=== PATIENT | female | born 1950 | race Caucasian/White ===

== ENCOUNTER → 2017-03-26 | Outpatient (CLI) | payer MEDICARE, OTHER ==
[~2017-03-26] MED LIST: ACTONEL; ALLE25CA PO; CALCIUM WITH D; CALCTAB22 PO; CARI350T PO; ENBREL; ESTRADIOL; FLEXERIL PO; FOLI1TAB PO; FOLITAB11; HYDROXYCHLOROQUINE PO; IMIT50TA; IMIT50TA PO; LIDO5DIS; LIDO5DIS EXT; MELOPOW; MELOPOW PO; METH2.5T; METH2.5T PO; MOBIC; MULTIVIT; MULTIVIT PO; NORETHINDRONE; OMEP20TA7 PO; SUDA30TA OR; TIZA2TAB PO; TYLENOL ARTHRITIS; VENL75TA2 PO; VITAMIN D 3; [UNRECOGNIZED DRUG - OTHER]; astelin spray; enbrel INJ; vitamin d3 PO
--- NOTE | 2017-03-26 12:25 | REPMRS ---
Patient History The patient states she had a clinical breast exam in 03/2017. Patient is postmenopausal and has history of other cancer at age 58. Family history of breast cancer in mother at age 50 or over and breast cancer in maternal aunt at age 50 or over. Taking estrogen for 18 years. Digital Woman Screen Mammo: March 26, 2017 - Exam #: [id number] Bilateral CC and MLO view(s) were taken. Technologist: Greer Lopez, Technologist Prior study comparison: September 19, 2015, digital woman screen mammo performed at [facility] to [facility]. May 10, 2014, digital woman screen mammo performed at [facility] to [facility]. FINDINGS: The breast tissue is heterogeneously dense. This may lower the sensitivity of mammography. There has been no change in the appearance of the mammogram from the prior studies. There is a moderate amount of residual fibroglandular tissue which is fairly symmetric. There is no interval development of dominant mass, areas of architectural distortion, or clustered microcalcification typical of malignancy. ASSESSMENT: BI-RADS/ACR category 1 mammogram. Negative. Recommendation Routine screening mammogram in 1 year (for women over age 40). This mammogram was interpreted with the aid of an FDA-approved computer-aided dectection system. Electronically Signed By: Alo Grissom MD 03/26/17 [id number]
== END ==
LOC: M WHC 11:00
PROVIDERS: ATTEND Nurse Practitioner Women's Health
DX: Z12.31 Encounter for screening mammogram for malignant neoplasm of breast (principal)
CPT/HCPCS: G0202; G0463

== ENCOUNTER → 2017-05-04 | Outpatient (CLI) | payer MEDICARE, OTHER ==
[~2017-05-04] MED LIST changes: +AMIT8CAP4 PO; +CELE1CAP9 PO; +ENBR50IN4 SQ; +ESTR1MIS; +HYDR-643 PO; +HYDR200T3 PO; +IMIT6INJ SC; +NALT50TA4 PO; +OMEP20CA3 PO; +VENL150C43 PO
--- NOTE | 2017-05-04 15:41 | REP ---
REASON: Constipation. FINDINGS: KUB shows the intestinal gas pattern to be nonspecific. The organ silhouettes insofar as delineated are unremarkable. There is no evidence of free intraperitoneal air. There is a large amount of stool in the colon which needs to be correlated clinically for constipation. There are chronic changes seen involving the spine and there are bilateral hip prostheses. IMPRESSION: Nonspecific.
== END ==
LOC: M CLY 15:00
PROVIDERS: ATTEND Nurse Practitioner
DX: K59.04 Chronic idiopathic constipation (principal)
CPT/HCPCS: 74000; G0463

== ENCOUNTER → 2017-05-27 | Outpatient (CLI) | payer MEDICARE, OTHER ==
[~2017-05-27] VITALS: Ht 157.5 cm; Wt 71.2 kg
[~2017-05-27] MED LIST changes: +LABETALOL HCL 100 MG/20 ML VIAL As Ordered ONE; +NS 1,000 ML IV ONE; +PROPOFOL 200 MG/20 ML VIAL As Ordered ONE; +SUMAtriptan SUCCINATE 6 MG/0.5 ML VIAL SC ONE
--- NOTE | 2017-05-27 15:21 | ROOR ---
Patient Name: Sonali Sams Procedure Date: 05/27/2017 2:57 PM Date of : 1950 Age: 66 Room: [facility] Gender: Female Note Status: Finalized Procedure: Total Colonoscopy to Cecum Indications: Lower abdominal pain, Change in bowel habits Providers: Darci Huffman MD Referring MD: Ramu Jama MD Requesting Provider: Medicines: Monitored Anesthesia Care Complications: No immediate complications. Procedure: Pre-Anesthesia Assessment: - The heart rate, respiratory rate, oxygen saturations, blood pressure, adequacy of pulmonary ventilation, and response to care were monitored throughout the procedure. The Colonoscope was introduced through the anus and advanced to the cecum, identified by appendiceal orifice and ileocecal valve. Findings: The perianal and digital rectal examinations were normal. Non-bleeding internal hemorrhoids were found during retroflexion. The hemorrhoids were small and Grade I (internal hemorrhoids that do not prolapse). No other significant abnormalities were identified in a careful examination of the remainder of the colon. The exam was otherwise without abnormality on direct and retroflexion views. Impression: - Non-bleeding internal hemorrhoids. - The examination was otherwise normal on direct and retroflexion views. - No specimens collected. - The exam was otherwise normal to the cecum. Recommendation: - Patient has a contact number available for emergencies. The signs and symptoms of potential delayed complications were discussed with the patient. Return to normal activities tomorrow. Written discharge instructions were provided to the patient. - High fiber diet. - Discharge patient to home. - Continue present medications. - Repeat colonoscopy in 5 years for screening purposes. - Return to referring physician. - The findings and recommendations were discussed with the patient's family. Darci Huffman MD Darci Huffman MD 05/27/2017 3:21:19 PM This report has been signed electronically. Number of Addenda: 0 Note Initiated On: 05/27/2017 2:57 PM Estimated Blood Loss: Estimated blood loss: none.
[2017-05-27 15:40] VITALS: BP 179/94
== END | disposition home or self-care (01) ==
LOC: M OPP 13:57
PROVIDERS: ATTEND Internal Medicine Gastroenterology
DX: R10.30 Lower abdominal pain, unspecified (principal); R19.4 Change in bowel habit; K58.1 Irritable bowel syndrome with constipation; K64.0 First degree hemorrhoids; M89.9 Disorder of bone, unspecified; R19.7 Diarrhea, unspecified; Z86.010 Personal history of colon polyps; R23.3 Spontaneous ecchymoses; M08.00 Unspecified juvenile rheumatoid arthritis of unspecified site; M25.60 Stiffness of unspecified joint, not elsewhere classified; G43.909 Migraine, unspecified, not intractable, without status migrainosus; Z88.0 Allergy status to penicillin; Z88.1 Allergy status to other antibiotic agents; Z88.5 Allergy status to narcotic agent; Z79.899 Other long term (current) drug therapy; Z83.71 Family history of colonic polyps; Z80.3 Family history of malignant neoplasm of breast; Z80.8 Family history of malignant neoplasm of other organs or systems

== ENCOUNTER → 2017-07-03 | Outpatient (REF) | payer MEDICARE, OTHER ==
[~2017-07-03] MED LIST changes: -LABETALOL HCL 100 MG/20 ML VIAL As Ordered ONE; -NS 1,000 ML IV ONE; -PROPOFOL 200 MG/20 ML VIAL As Ordered ONE; -SUMAtriptan SUCCINATE 6 MG/0.5 ML VIAL SC ONE
[2017-07-03 18:35] LABS: BLOOD UREA NITROGEN 21 MG/DL (7-18); CREATININE FOR GFR 0.71 MG/DL (0.55-1.02); GLOMERULAR FILTRATION RATE > 60.0 (>45)
== END ==
LOC: M LAB REF 17:11
PROVIDERS: ATTEND Internal Medicine Gastroenterology
DX: R10.30 Lower abdominal pain, unspecified (principal)

== ENCOUNTER → 2017-07-08 | Outpatient (CLI) | payer MEDICARE, OTHER ==
[~2017-07-08] MED LIST changes: +GASTROGRAFIN SOLUTION 30ML (Q9963) As Ordered ONE; +ISOVUE-370 76% 100ML VIAL (Q9967) As Ordered ONE
--- NOTE | 2017-07-08 18:16 | REP ---
CT abdomen and pelvis with IV and oral contrast: History: Lower abdominal pain. CT contrast dose: 100 mL of Isovue [address] findings: Preliminary digital nutrition services assistant radiograph demonstrates a dextroconvex curvature in the lumbar spine and bilateral hip replacements. The lung bases are clear. There are two small hepatic cysts, the largest of which is high in the right lobe measuring 2.1 cm in greatest diameter. Gallbladder is unremarkable. No pancreatic lesion is seen. Spleen has a normal appearance. No adrenal lesion is seen on either side. There is a cyst in the upper pole of the right kidney which measures 2.0 cm in greatest diameter. No renal mass or hydronephrosis is seen. Normal caliber aorta is noted. Small and large intestinal bowel loops are normal in appearance. A normal appendix is seen. There is some spray artifact on pelvic images from hip replacement but no uterine or ovarian abnormality is seen. The uterus appears to be retroverted. No bony destructive lesion is appreciated. There are degenerative disc changes in the lumbar spine. Impression: Small right hepatic and right renal cysts. Status post bilateral hip replacements. Retroverted uterus. Otherwise unremarkable CT abdomen pelvis. Signed by Fortunato Taylor MD 07/09/2017 08:52 A
== END ==
LOC: M RAD 13:11
PROVIDERS: ATTEND Internal Medicine Gastroenterology
DX: R10.30 Lower abdominal pain, unspecified (principal)
CPT/HCPCS: 74177; Q9963; Q9967

== ENCOUNTER → 2017-07-22 | Outpatient (REF) | payer MEDICARE, OTHER ==
[~2017-07-22] MED LIST changes: -GASTROGRAFIN SOLUTION 30ML (Q9963) As Ordered ONE; -ISOVUE-370 76% 100ML VIAL (Q9967) As Ordered ONE
[2017-07-23 12:49] LABS: ADD MANUAL DIFFER YES; DIFF SLIDE NUMBER 382; MEAN CORPUSCULAR HEMOGLOBIN 33.1 pg (27.0-33.0); MEAN CORPUSCULAR HGB CONC 33.2 g/dl (32.0-36.5); MEAN CORPUSCULAR VOLUME 99.7 fl (80.0-96.0); PLATELET COUNT, AUTOMATED 209 k/mm3 (150-450); RED CELL DISTRIBUTION WIDTH 12.9 % (11.5-14.5)
[2017-07-23 13:54] LABS: ERYTHROCYTE SEDIMENTATION RATE 4 mm/hr (0-30)
[2017-07-23 14:03] LABS: ALBUMIN 4.1 GM/DL (3.2-5.2); ALBUMIN/GLOBULIN RATIO 1.37 (1.00-1.93); ALKALINE PHOSPHATASE 81 U/L (45-117); ALT/SGPT 27 U/L (12-78); ANION GAP 9 MEQ/L (8-16); AST/SGOT 22 U/L (15-37); BILIRUBIN,TOTAL 0.5 MG/DL (0.2-1.0); BLOOD UREA NITROGEN 18 MG/DL (7-18); CALCIUM LEVEL 9.2 MG/DL (8.8-10.2); CARBON DIOXIDE LEVEL 28 MEQ/L (21-32); CHLORIDE LEVEL 104 MEQ/L (98-107); CREATININE FOR GFR 0.69 MG/DL (0.55-1.02); GLOMERULAR FILTRATION RATE > 60.0 (>45); GLUCOSE, FASTING 97 MG/DL (80-110); POTASSIUM SERUM 4.3 MEQ/L (3.5-5.1); SODIUM LEVEL 141 MEQ/L (136-145); TOTAL PROTEIN 7.1 GM/DL (6.4-8.2)
[2017-07-23 14:21] LABS: BASOPHILS 2 % (0-4); EOSINOPHILS 4 % (0-5)
== END ==
LOC: M LABDRAWC 11:40
PROVIDERS: ATTEND Internal Medicine Rheumatology
DX: M05.79 Rheumatoid arthritis with rheumatoid factor of multiple sites without organ or systems involvement (principal); Z79.899 Other long term (current) drug therapy; M85.89 Other specified disorders of bone density and structure, multiple sites; E55.9 Vitamin D deficiency, unspecified

== ENCOUNTER → 2018-08-03 | Outpatient (CLI) | payer MEDICARE, OTHER | LOC: M WHC 13:07 | DX: M85.832 Other specified disorders of bone density and structure, left forearm (principal); M85.88 Other specified disorders of bone density and structure, other site | CPT/HCPCS: 77080 ==

== ENCOUNTER → 2018-08-26 | Outpatient (REF) | payer MEDICARE, OTHER ==
[2018-08-26 14:10] LABS: TOTAL 25(OH) VITAMIN D 45.6 NG/ML (30.0-100.0)
== END ==
LOC: M LABDRAW1 12:37
DX: M81.0 Age-related osteoporosis without current pathological fracture (principal)
CPT/HCPCS: 82306

== ENCOUNTER → 2019-06-08 | Outpatient (CLI) | payer MEDICARE, OTHER ==
[~2019-06-08] MED LIST changes: -ENBR50IN4 SQ; +ETAN50PE SQ; +OMEP1CAP73 PO; -OMEP20CA3 PO
--- NOTE | 2019-06-08 15:17 | REPMRS ---
Patient History The patient states she had a clinical breast exam in 05/2019. Patient is postmenopausal and has history of skin cancer at age 58. Family history of breast cancer at age 50 or over in mother, breast cancer at age 50 or over in maternal aunt. Took estrogen for 18 years. 3D TOMOSYNTHESIS WAS PERFORMED. The [facility] lifetime risk for breast cancer is 13.3%. Digital Woman Screen Mammo: June 08, 2019 - Exam #: [id number] Bilateral CC and MLO view(s) were taken. Technologist: Vivian Cuba, Technologist Prior study comparison: March 26, 2017, digital woman screen mammo performed at [facility]. September 19, 2015, digital woman screen mammo performed at [facility]. FINDINGS: The breast tissue is heterogeneously dense. This may lower the sensitivity of mammography. There has been no change in the appearance of the mammogram from the prior studies. There is a moderate amount of residual fibroglandular tissue which is fairly symmetric. There is no interval development of dominant mass, areas of architectural distortion, or clustered microcalcification typical of malignancy. Assessment: BI-RADS/ACR category 1 mammogram. Negative Mammogram. Recommendation Routine screening mammogram in 1 year (for women over age 40). This mammogram was interpreted with the aid of an FDA-approved computer-aided dectection system. Electronically Signed By: Alo Grissom MD 06/08/19 [id number]
== END ==
LOC: M WHC 13:09
PROVIDERS: ATTEND Nurse Practitioner Women's Health
DX: Z12.31 Encounter for screening mammogram for malignant neoplasm of breast (principal); Z78.0 Asymptomatic menopausal state; Z85.828 Personal history of other malignant neoplasm of skin; Z80.3 Family history of malignant neoplasm of breast; Z92.23 Personal history of estrogen therapy
CPT/HCPCS: 77063; 77067; G0463

== ENCOUNTER → 2020-06-11 | Outpatient (REF) | payer MEDICARE, OTHER ==
[2020-07-06 21:53] LABS: BASO % 0.9 % (0.0-1.0); EOS # 0.1 10^3/uL (0.0-0.5); EOS % 3.1 % (0.0-3.0); HEMATOCRIT 65.3 % (36.0-47.0); HEMOGLOBIN 21.5 g/dl (12.0-15.5); LYMPH # 1.8 10^3/uL (1.5-5.0); LYMPH % 43.6 % (24.0-44.0); MEAN CORPUSCULAR HEMOGLOBIN 33.3 pg (27.0-33.0); MEAN CORPUSCULAR HGB CONC 32.9 g/dl (32.0-36.5); MEAN CORPUSCULAR VOLUME 101.2 fl (80.0-96.0); MONO # 0.3 10^3/uL (0.0-0.8); MONO % 7.1 % (0.0-5.0); NEUTROPHILS # 1.9 10^3/uL (1.5-8.5); NEUTROPHILS % 44.8 % (36.0-66.0); PLATELET COUNT, AUTOMATED 90 10^3/uL (150-450); RED BLOOD COUNT 6.45 10^6/uL (4.00-5.40); WHITE BLOOD COUNT 4.2 10^3/uL (4.0-10.0)
[2020-08-17 15:19] LABS: THYROID STIMULATING HORMONE SEE SEPARATE REPORT
== END ==
LOC: M SFHCPLAZ 08:59
PROVIDERS: ATTEND Nurse Practitioner Women's Health
DX: N95.1 Menopausal and female climacteric states (principal)

== ENCOUNTER → 2020-06-11 | Outpatient (CLI) | payer MEDICARE, OTHER ==
--- NOTE | 2020-07-06 07:50 | REPMRS ---
Patient History The patient states she had a clinical breast exam in 05/2020. Patient is postmenopausal and has history of other cancer at age 58. Family history of breast cancer at age 50 or over in mother, breast cancer at age 50 or over in maternal aunt. Took estrogen for 18 years. Digital Woman Screen Mammo: June 11, 2020 - Exam #: [id number] Bilateral CC and MLO view(s) were taken. Technologist: Liz Wright, Technologist Prior study comparison: June 08, 2019, bilateral digital woman screen mammo performed at [facility]. March 26, 2017, digital woman screen mammo performed at [facility]. September 19, 2015, digital woman screen mammo performed at [facility]. FINDINGS: The breast tissue is heterogeneously dense. This may lower the sensitivity of mammography. There is a moderate amount of heterogeneously dense fibroglandular tissue which is fairly symmetric. There is no interval development of dominant mass, architectural distortion, or grouped microcalcification typical of malignancy. There has been no change in the appearance of the mammogram from the prior studies. 3-D tomosynthesis shows no additional findings. Report was delayed due to a malware attack on this facility. Assessment: BI-RADS/ACR category 1 mammogram. Negative Mammogram. Recommendation Routine screening mammogram of both breasts in 1 year (for women over age 40). This patient's Lifetime Breast Cancer RIsk is estimated at 12.5 %. This mammogram was interpreted with the aid of an FDA-approved computer-aided dectection system. Electronically Signed By: Darrel Taylor MD 07/06/20 0749
== END ==
LOC: M WHC 17:13
PROVIDERS: ATTEND Nurse Practitioner Women's Health
DX: Z01.419 Encounter for gynecological examination (general) (routine) without abnormal findings (principal); Z12.31 Encounter for screening mammogram for malignant neoplasm of breast; Z78.0 Asymptomatic menopausal state; Z80.3 Family history of malignant neoplasm of breast; Z92.23 Personal history of estrogen therapy; Z79.899 Other long term (current) drug therapy
CPT/HCPCS: 36415; 77063; 77067; 84439; 84443; 85025; 85049; 85055; G0101

== ENCOUNTER → 2020-06-27 | Outpatient (REF) | payer MEDICARE, OTHER ==
[2020-07-30 09:48] LABS: HEMATOCRIT 47.3 % (36.0-47.0); HEMOGLOBIN 15.5 g/dl (12.0-15.5); MEAN CORPUSCULAR HEMOGLOBIN 33.5 pg (27.0-33.0); MEAN CORPUSCULAR HGB CONC 32.8 g/dl (32.0-36.5); MEAN CORPUSCULAR VOLUME 102.4 fl (80.0-96.0); PLATELET COUNT, AUTOMATED 241 10^3/uL (150-450); RED BLOOD COUNT 4.62 10^6/uL (4.00-5.40); WHITE BLOOD COUNT 5.2 10^3/uL (4.0-10.0)
[2020-08-12 06:32] LABS: BLOOD UREA NITROGEN 23 MG/DL (7-18); CALCIUM LEVEL 9.4 MG/DL (8.8-10.2); CARBON DIOXIDE LEVEL 31 MEQ/L (21-32); CHLORIDE LEVEL 105 MEQ/L (98-107); CREATININE FOR GFR 0.72 MG/DL (0.55-1.30); GLOMERULAR FILTRATION RATE > 60.0 (>39); GLUCOSE, FASTING 81 MG/DL (70-100); POTASSIUM SERUM 4.8 MEQ/L (3.5-5.1); SODIUM LEVEL 138 MEQ/L (136-145)
== END ==
LOC: M SFHCCLAY 09:29
PROVIDERS: ATTEND Family Medicine
DX: R23.2 Flushing (principal)

== ENCOUNTER → 2020-08-07 | Outpatient (REF) | payer MEDICARE, OTHER ==
[2020-08-08 12:42] LABS: FREE T4 0.8 NG/DL (0.76-1.46); THYROID STIMULATING HORMONE 3.51 uIU/ML (0.358-3.740)
== END ==
LOC: M SFHCCLAY 11:01
PROVIDERS: ATTEND Family Medicine
DX: E03.9 Hypothyroidism, unspecified (principal)

== ENCOUNTER → 2021-05-03 | Outpatient (REF) | payer MEDICARE, OTHER | LOC: M LABDRAWC 15:36 | PROVIDERS: ATTEND Internal Medicine Endocrinology, Diabetes & Metabolism | DX: M85.9 Disorder of bone density and structure, unspecified (principal) ==

== ENCOUNTER → 2021-05-15 | Outpatient (CLI) | payer MEDICARE, OTHER ==
--- NOTE | 2021-05-16 16:09 | REPVR ---
PROCEDURE INFORMATION: Exam: MR Lumbar Spine Without Contrast Exam date and time: 05/15/2021 1:32 PM Age: 70 years old Clinical indication: Low back pain; Additional info: Abnormal levels of other serum enzymes TECHNIQUE: Imaging protocol: Multiplanar magnetic resonance images of the lumbar spine without intravenous contrast. COMPARISON: CT ABD PELVIS WITH CONTRAST 07/08/2017 3:11 PM FINDINGS: Vertebrae: See "Sacrum/coccyx" finding. Spinal cord: Normal signal. No cord compression. T12-L1: There is degenerative disc disease including disc space narrowing and dessication. There is a moderate disc/osteophyte complex that flattens the ventral thecal sac. L1-L2: There is disc desiccation. There is a moderate disc/osteophyte complex that flattens the ventral thecal sac. There is moderate bilateral neural foraminal narrowing. There is facet arthropathy and ligamentum flavum hypertrophy. There is mild spinal canal stenosis. L2-L3: There is a moderate disc/osteophyte complex that flattens the ventral thecal sac. There is severe left-sided neuroforaminal narrowing. There is moderate right-sided neuroforaminal narrowing. There is facet arthropathy and ligamentum flavum hypertrophy. There is mild/moderate spinal canal stenosis. L3-L4: There is disc space narrowing and desiccation. There are moderate degenerative end plate changes at this level. There is a moderate disc/osteophyte complex that flattens the ventral thecal sac. There is moderate/severe bilateral neural foraminal narrowing. There is facet arthropathy and ligamentum flavum hypertrophy. There is moderate spinal canal stenosis. L4-L5: There is disc space narrowing and desiccation. There are moderate degenerative end plate changes at this level. There is a moderate disc/osteophyte complex that flattens the ventral thecal sac. There is a superimposed right foraminal disc herniation. There is severe right-sided neuroforaminal narrowing. There is moderate left-sided neuroforaminal narrowing. There is facet arthropathy and ligamentum flavum hypertrophy. There is moderate spinal canal stenosis. L5-S1: There is disc desiccation. There is a moderate disc/osteophyte complex that flattens the ventral thecal sac. There is a superimposed right foraminal disc herniation. There is severe right-sided neuroforaminal narrowing. There is moderate left-sided neuroforaminal narrowing. There is exuberant bilateral facet arthropathy and ligamentum flavum hypertrophy. There is a 6 mm right-sided synovial cyst that encroaches into the spinal canal. There is moderate/severe spinal canal stenosis. Sacrum/coccyx: There is a transitional lumbosacral segment. There is lumbarization of the S1 vertebra. Correlation with plain films prior to any future lumbar procedure is recommended to confirm accurate numbering of the lumbar spine. Soft tissues: Unremarkable. IMPRESSION: 1. Advanced multilevel degenerative changes causing variable degrees of spinal canal and neuroforaminal narrowing as described above. 2. There is a transitional lumbosacral segment. There is lumbarization of the S1 vertebra. Correlation with plain films prior to any future lumbar procedure is recommended to confirm accurate numbering of the lumbar spine. Electronically signed by: Sadi Randolph On 05/16/2021 16:09:32 PM
== END ==
LOC: M PLAIMG 12:26
PROVIDERS: ATTEND Orthopaedic Surgery
DX: M51.36 Other intervertebral disc degeneration, lumbar region (principal); M48.061 Spinal stenosis, lumbar region without neurogenic claudication; M51.26 Other intervertebral disc displacement, lumbar region

== ENCOUNTER → 2021-05-31 | Outpatient (CLI) | payer MEDICARE, OTHER ==
[2021-05-31 13:59] LABS: COLLAGEN EPINEPHRINE 95 SECONDS (74-162)
[2021-05-31 14:02] LABS: INR 0.92; PARTIAL THROMBOPLASTIN TIME 25.7 SECONDS (24.2-38.5); PROTHROMBIN TIME 12.5 SECONDS (12.5-14.3)
== END ==
LOC: M PLALAB 12:44
PROVIDERS: ATTEND Physician Assistant
DX: M51.36 Other intervertebral disc degeneration, lumbar region (principal)

== ENCOUNTER → 2021-06-06 | Outpatient (REF) | payer MEDICARE, OTHER ==
[2021-06-06 16:21] LABS: PLATELET COUNT, AUTOMATED 205 10^3/uL (150-450)
== END ==
LOC: M LABDRAWC 15:53
PROVIDERS: ATTEND Physical Medicine & Rehabilitation
DX: Z01.812 Encounter for preprocedural laboratory examination (principal)

== ENCOUNTER → 2021-06-13 | Outpatient (CLI) | payer MEDICARE, OTHER ==
--- NOTE | 2021-06-13 12:32 | REPMRS ---
Patient History The patient states she had a clinical breast exam in May 2021. Family history of breast cancer at age 50 or over in mother, breast cancer at age 50 or over in maternal aunt. Took estrogen for 18 years. Patient states no breast complaints today. Patient has signed MRS History Sheet. Digital Woman Screen Mammo: June 13, 2021 - Exam #: [id number] Bilateral CC and MLO view(s) were taken. Technologist: Vivian Cuba, Technologist Prior study comparison: June 11, 2020, bilateral digital woman screen mammo performed at [facility]. June 08, 2019, bilateral digital woman screen mammo performed at [facility]. FINDINGS: There are scattered fibroglandular densities. Screening. Digital screening (2D) mammography was performed bilaterally in the CC and MLO projections. Additionally, breast tomosynthesis (3D mammography) was performed bilaterally in the CC and MLO projections. Todays exam was compared to the prior exam/exams. By history, the patient has no complaints of a palpable breast abnormality or other significant breast complaints. The breasts are unchanged in size and shape. There are no david-soft tissue densities or spiculated masses. There is no internal architectural distortion. Once again, stable benign appearing calcifications are seen.There are no suspicious david-calcific clusters. Skin thickening or nipple retraction is not present. IMPRESSION: BI-RADS Category 2- Benign Findings. There is no evidence of malignant alteration of the breasts. Followup examination recommended in one year. This mammogram was read with the assistance of At[employer],an FDA approved computer aided detection system for mammography. The Volpara volumetric breast density category is B, there are scattered areas of fibroglandular densities. Negative x-ray reports should not delay surgical consultation if a dominant or clinically suspicious mass is present. The lifetime Tyrer-Cuzick score is 11.8 % Not all breast cancers can be identified by mammography. Therefore, we recommend that you continue to perform regular breast self-examination and physical examination and then promptly contact your physician of any concerns or changes. Adenosis and dense breasts may obscure an underlying neoplasm. Assessment: BI-RADS/ACR category 2 mammogram. Benign Findings. Recommendation Routine screening mammogram of both breasts in 1 year. Electronically Signed By: Ezra Trimble DO 06/13/21 1231
== END ==
LOC: M WHC 11:16
PROVIDERS: ATTEND Nurse Practitioner Women's Health
DX: Z01.419 Encounter for gynecological examination (general) (routine) without abnormal findings (principal); Z12.31 Encounter for screening mammogram for malignant neoplasm of breast; Z80.3 Family history of malignant neoplasm of breast; N95.2 Postmenopausal atrophic vaginitis
CPT/HCPCS: 77063; 77067; G0101

== ENCOUNTER → 2021-06-20 | Outpatient (CLI) | payer MEDICARE, OTHER ==
--- NOTE | 2021-06-20 14:47 | DEXAMM ---
INDICATION: DISORDER OF BONE/M85.9. COMPARISON: 08/03/2018 as well as other prior exams. TECHNIQUE: Bone density was measured using dual-energy x-ray absorptiometry (DEXA). FINDINGS: AP SPINE L1-L4 BMD 1.362 g/cm2 Young Adult T-Score 1.4 Age Matched Z-Score 3.1. LT forearm radius UD, TOTAL BMD 0.460 g/cm2 Young Adult T-Score -0.2 Age Matched Z-Score 1.9. LT radius 33% BMD 0.630 g/cm2 Young Adult T-Score -2.9 Age Matched Z-Score -0.9. IMPRESSION: There is normal bone density of the spine. 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 The density of the spine has increased 13.4% since the initial exam on 12/24/2010. The density of the spine decreased 2.5% since most recent exam on 08/03/2018. The density of the left radius 33% has decreased 11.1% since initial exam on 08/01/2016. The density of the left radius 33% has decreased 13.2% since most recent exam on 08/03/2018. FOLLOW-UP: Recommendation for the next bone density exam: 2 years. <Electronically signed by Alo Grissom > 06/20/21 1059
== END ==
LOC: M WHC 12:57
PROVIDERS: ATTEND Internal Medicine Endocrinology, Diabetes & Metabolism
DX: M85.0 Fibrous dysplasia (monostotic) (principal); Z78.0 Asymptomatic menopausal state

== ENCOUNTER → 2021-08-16 | Outpatient (CLI) | payer MEDICARE, OTHER ==
--- NOTE | 2021-08-16 13:50 | REP ---
INDICATION: LUMBAR DISE DISPLACEMENT, EVAL LOOSENING/OTH DERAN. COMPARISON: Comparison study February 24, 2012. TECHNIQUE: 22.0 mCi of technetium 99 M MDP is injected and standard 3 phase imaging is acquired. Field of view includes the pelvis and hips. The lumbar spine as well. FINDINGS: Anterior and posterior flow images show no abnormality. Blood pool images as well as delayed scan images demonstrate photopenia associated with bilateral hip arthroplasties. There is no evidence of localized hyperemia to suggest an inflammatory or vascular lesion. Delayed scan images show no evidence of loosening. There is degenerative facet and disc uptake in the lumbar spine along with a dextroconvex lumbar curvature. IMPRESSION: Bilateral hip arthroplasties. Degenerative disc and facet changes in the lumbar spine. No evidence to suggest loosening or infection. <Electronically signed by Darrel Taylor > 08/16/21 [id number]
== END ==
LOC: M RAD 10:12
PROVIDERS: ATTEND Physician Assistant
DX: M51.26 Other intervertebral disc displacement, lumbar region (principal); Z96.643 Presence of artificial hip joint, bilateral
CPT/HCPCS: 78315; A9503

== ENCOUNTER → 2021-09-05 | Outpatient (REF) | payer MEDICARE, OTHER | LOC: M LABDRAWC 15:50 | PROVIDERS: ATTEND Internal Medicine Endocrinology, Diabetes & Metabolism | DX: M81.0 Age-related osteoporosis without current pathological fracture (principal) ==

== ENCOUNTER → 2022-04-09 | Outpatient (CLI) | payer MEDICARE, OTHER | LOC: M CLY 14:18 | PROVIDERS: ATTEND Family Medicine | DX: R07.89 Other chest pain (principal); Z96.611 Presence of right artificial shoulder joint; Z96.612 Presence of left artificial shoulder joint ==

== ENCOUNTER → 2022-04-18 | Outpatient (CLI) | payer MEDICARE, OTHER | LOC: M PLAIMG 09:52 | PROVIDERS: ATTEND Family Medicine | DX: M54.32 Sciatica, left side (principal); M48.061 Spinal stenosis, lumbar region without neurogenic claudication; M51.27 Other intervertebral disc displacement, lumbosacral region; M41.86 Other forms of scoliosis, lumbar region ==

== ENCOUNTER → 2022-04-25 | Outpatient (REF) | payer MEDICARE, OTHER ==
[2022-04-25 16:43] LABS: BASO # 0.1 10^3/uL (0.0-0.2); BASO % 1.5 % (0.0-1.0); EOS # 0.2 10^3/uL (0.0-0.5); EOS % 4.8 % (0.0-3.0); HEMATOCRIT 47.1 % (36.0-47.0); HEMOGLOBIN 15.6 g/dl (12.0-15.5); LYMPH # 1.3 10^3/uL (1.5-5.0); LYMPH % 31.6 % (24.0-44.0); MEAN CORPUSCULAR HEMOGLOBIN 32.8 pg (27.0-33.0); MEAN CORPUSCULAR HGB CONC 33.1 g/dl (32.0-36.5); MEAN CORPUSCULAR VOLUME 99.2 fl (80.0-96.0); MONO # 0.7 10^3/uL (0.0-0.8); MONO % 17.2 % (2.0-8.0); NEUTROPHILS # 1.8 10^3/uL (1.5-8.5); NEUTROPHILS % 44.6 % (36.0-66.0); PLATELET COUNT, AUTOMATED 203 10^3/uL (150-450); RED BLOOD COUNT 4.75 10^6/uL (4.00-5.40)
[2022-04-25 17:27] LABS: ERYTHROCYTE SEDIMENTATION RATE 10 mm/hr (0-30)
[2022-04-25 17:40] LABS: ALBUMIN 3.7 GM/DL (3.2-5.2); ALT/SGPT 56 U/L (12-78); BILIRUBIN,TOTAL 0.7 MG/DL (0.2-1.0); BLOOD UREA NITROGEN 23 MG/DL (7-18); CALCIUM LEVEL 9.1 MG/DL (8.8-10.2); CARBON DIOXIDE LEVEL 27 MEQ/L (21-32); CHLORIDE LEVEL 105 MEQ/L (98-107); CHOLESTEROL LEVEL 235 MG/DL (<200); CHOLESTEROL RISK RATIO 2.797 (<5); CREATININE FOR GFR 0.93 MG/DL (0.55-1.30); FREE T4 0.74 NG/DL (0.76-1.46); GLOMERULAR FILTRATION RATE > 60.0 (>39); GLUCOSE, FASTING 91 MG/DL (70-100); HDL CHOLESTEROL 84 MG/DL (>40); LDL CHOLESTEROL 125 MG/DL (<100); NON-HDL-C 151 MG/DL; POTASSIUM SERUM 4.8 MEQ/L (3.5-5.1); RHEUMATOID FACTOR QUANT < 10.0 IU/ML (<15.0); SODIUM LEVEL 137 MEQ/L (136-145); TOTAL 25(OH) VITAMIN D 73.4 NG/ML (30.0-100.0); TOTAL PROTEIN 7.7 GM/DL (6.4-8.2); TRIGLYCERIDES LEVEL 130 MG/DL (<150)
== END ==
LOC: M SFHCCLAY 10:32
PROVIDERS: ATTEND Family Medicine
DX: M54.32 Sciatica, left side (principal); R07.89 Other chest pain; M05.79 Rheumatoid arthritis with rheumatoid factor of multiple sites without organ or systems involvement; E03.9 Hypothyroidism, unspecified

== ENCOUNTER → 2022-05-21 | Outpatient (REF) | payer MEDICARE, OTHER | LOC: M LABDRAWC 15:52 | PROVIDERS: ATTEND Internal Medicine Endocrinology, Diabetes & Metabolism | DX: M85.9 Disorder of bone density and structure, unspecified (principal) ==

== ENCOUNTER → 2022-06-09 | Outpatient (REF) | payer MEDICARE, OTHER | LOC: M LAB REF 19:36 | PROVIDERS: ATTEND Nurse Practitioner Family | DX: N30.01 Acute cystitis with hematuria (principal) ==

== ENCOUNTER → 2022-07-07 | Outpatient (REF) | payer MEDICARE, OTHER | LOC: M SFHCCLAY 11:37 | PROVIDERS: ATTEND Family Medicine | DX: R19.7 Diarrhea, unspecified (principal) ==

== ENCOUNTER → 2022-07-29 | Outpatient (REF) | payer MEDICARE, OTHER | LOC: M LABDRAWC 14:36 | PROVIDERS: ATTEND Internal Medicine Endocrinology, Diabetes & Metabolism | DX: M85.9 Disorder of bone density and structure, unspecified (principal) ==

== ENCOUNTER → 2022-07-31 | Outpatient (REF) | payer MEDICARE, OTHER | LOC: M WUC 22:36 | PROVIDERS: ATTEND Physician Assistant | DX: N39.0 Urinary tract infection, site not specified (principal) ==

== ENCOUNTER → 2022-08-01 | Outpatient (CLI) | payer MEDICARE, OTHER | LOC: M WHC 10:00 | PROVIDERS: ATTEND Internal Medicine Endocrinology, Diabetes & Metabolism | DX: E55.9 Vitamin D deficiency, unspecified (principal); M85.89 Other specified disorders of bone density and structure, multiple sites ==

== ENCOUNTER → 2022-08-11 | Outpatient (CLI) | payer MEDICARE, OTHER | LOC: M WHC 11:03 | PROVIDERS: ATTEND Specialist | DX: Z12.31 Encounter for screening mammogram for malignant neoplasm of breast (principal) ==

== ENCOUNTER → 2023-07-16 | Outpatient (REF) | payer MEDICARE, OTHER ==
[~2023-07-16] MED LIST changes: -ESTR1MIS; +ESTR1VAG3; -HYDR200T3 PO; +HYDR200T46 PO
[2023-07-16 17:33] LABS: BASO # 0.1 10^3/uL (0.0-0.2); BASO % 1.1 % (0.0-1.0); EOS # 0.2 10^3/uL (0.0-0.5); EOS % 4.8 % (0.0-3.0); HEMATOCRIT 45.3 % (36.0-47.0); HEMOGLOBIN 14.9 g/dl (12.0-15.5); LYMPH # 1.1 10^3/uL (1.5-5.0); LYMPH % 25.3 % (24.0-44.0); MEAN CORPUSCULAR HEMOGLOBIN 32.7 pg (27.0-33.0); MEAN CORPUSCULAR HGB CONC 32.9 g/dl (32.0-36.5); MEAN CORPUSCULAR VOLUME 99.6 fl (80.0-96.0); MONO # 0.6 10^3/uL (0.0-0.8); MONO % 12.9 % (2.0-8.0); NEUTROPHILS # 2.5 10^3/uL (1.5-8.5); NEUTROPHILS % 55.7 % (36.0-66.0); PLATELET COUNT, AUTOMATED 208 10^3/uL (150-450); RED BLOOD COUNT 4.55 10^6/uL (4.00-5.40); WHITE BLOOD COUNT 4.4 10^3/uL (4.0-10.0)
[2023-07-16 18:02] LABS: ALBUMIN 3.7 G/DL (3.2-5.2); ALKALINE PHOSPHATASE 50 U/L (46-116); ALT/SGPT 18 U/L (7.0-40); AST/SGOT 15 U/L (<34); BILIRUBIN,TOTAL 0.5 MG/DL (0.3-1.2); BLOOD UREA NITROGEN 19 MG/DL (9-23); CALCIUM LEVEL 10.5 MG/DL (8.3-10.6); CARBON DIOXIDE LEVEL 29 MMOL/L (20-31); CHLORIDE LEVEL 106 MMOL/L (98-107); CHOLESTEROL LEVEL 211 MG/DL (<200); CHOLESTEROL RISK RATIO 2.63 (<5); CREATININE FOR GFR 0.78 MG/DL (0.55-1.30); GLOMERULAR FILTRATION RATE > 60.0 (>39); GLUCOSE, FASTING 95 MG/DL (74-106); HDL CHOLESTEROL 80.2 MG/DL (>40); LDL CHOLESTEROL 114.4 MG/DL (<100); NON-HDL-C 130.8 MG/DL; POTASSIUM SERUM 5.3 MMOL/L (3.5-5.1); SODIUM LEVEL 141 MMOL/L (136-145); THYROID STIMULATING HORMONE 1.944 uIU/ML (0.55-4.78); TOTAL 25(OH) VITAMIN D 72.1 NG/ML (20.0-100.0); TOTAL PROTEIN 6.2 G/DL (5.7-8.2); TRIGLYCERIDES LEVEL 82 MG/DL (<150)
[2023-07-16 18:04] LABS: C REACTIVE PROTEIN QUANTITATIV < 0.40 MG/DL (<1.0); FREE T4 1.14 NG/DL (0.89-1.76)
[2023-07-16 18:11] LABS: ERYTHROCYTE SEDIMENTATION RATE 9 mm/hr (0-30)
== END ==
LOC: M SFHCCLAY 09:35
PROVIDERS: ATTEND Family Medicine
DX: M05.79 Rheumatoid arthritis with rheumatoid factor of multiple sites without organ or systems involvement (principal); M54.32 Sciatica, left side; R07.89 Other chest pain; E03.9 Hypothyroidism, unspecified; M15.0 Primary generalized (osteo)arthritis

== ENCOUNTER 2023-08-17 16:47 | Emergency (ER) | payer MEDICARE, OTHER ==
[~2023-08-17] VITALS: Ht 152.4 cm; Wt 68.1 kg
[~2023-08-17 16:47] MED LIST changes: +CELE0.09 PO; -CELE1CAP9 PO
[2023-08-17 17:05] VITALS: TEMP 97.3
[2023-08-17] MEDS ORDERED: AMLO5CAP53 PO (17:25)
[2023-08-17] MEDS ORDERED: ALPR0.25 (17:29)
[2023-08-17] MEDS ORDERED: GABA-284 (17:29)
[2023-08-17] MEDS ORDERED: BENA25CA4 PO (17:29)
[2023-08-17] MEDS ORDERED: AMLO5CAP53 (17:31)
[2023-08-17] MEDS ORDERED: ONDANSETRON 4MG 2ML VIAL IV ONE (17:40)
[2023-08-17] MEDS ORDERED: diazePAM 10MG/2ML SYRINGE IV ONE (17:40)
[2023-08-17] MEDS ORDERED: fentaNYL 100 MCG/2 ML INJECTION IV ONE (17:40)
[2023-08-17] MEDS ORDERED: NS 1,000 ML IV SCH (17:45)
[2023-08-17] MEDS ORDERED: propofoL 200 MG/20 ML VIAL IV ONE (18:45)
[2023-08-17] MEDS ORDERED: ROLLMIS8 XX (19:43)
[2023-08-17] MEDS ORDERED: HYDR-3715 PO (20:23)
[2023-08-17 21:08] VITALS: BP 124/67; O2SAT 95
== END 2023-08-17 21:45 | disposition home or self-care (01) ==
LOC: M ED 16:47 → EDBD 16:47 → M ED 21:45
DX: S73.004A Unspecified dislocation of right hip, initial encounter (principal); I10 Essential (primary) hypertension; K21.9 Gastro-esophageal reflux disease without esophagitis; Z96.643 Presence of artificial hip joint, bilateral; Z79.891 Long term (current) use of opiate analgesic; Z79.899 Other long term (current) drug therapy; Y92.814 Boat as the place of occurrence of the external cause; Y93.89 Activity, other specified; Y99.9 Unspecified external cause status
CPT/HCPCS: 27266; 73501; 73502; 96361; 96374; 96375; 99291; J2405; J3010; J3360

== ENCOUNTER → 2024-05-16 | Outpatient (CLI) | payer MEDICARE, OTHER ==
[~2024-05-16] MED LIST changes: +ALPR0.25; +AMLO5CAP53; +AMLO5CAP53 PO; +BENA25CA4 PO; +GABA-284; +HYDR-3715 PO; +ROLLMIS8 XX
== END ==
LOC: M WHC 12:34
PROVIDERS: ATTEND Family Medicine
DX: Z12.31 Encounter for screening mammogram for malignant neoplasm of breast (principal)

== ENCOUNTER → 2024-06-16 | Outpatient (REF) | payer MEDICARE, OTHER ==
[2024-06-16 12:56] LABS: CALCIUM LEVEL 9.8 MG/DL (8.3-10.6)
== END ==
LOC: M LABDRAWC 11:48
PROVIDERS: ATTEND Nurse Practitioner Family
DX: M85.9 Disorder of bone density and structure, unspecified (principal)

== ENCOUNTER → 2025-05-30 | Outpatient (CLI) | payer MEDICARE, OTHER | LOC: M WHC 12:45 | PROVIDERS: ATTEND Physician Assistant | DX: Z12.31 Encounter for screening mammogram for malignant neoplasm of breast (principal); R92.333 Mammographic heterogeneous density, bilateral breasts ==

== ENCOUNTER → 2025-06-20 | Outpatient (REF) | payer MEDICARE, OTHER ==
[2025-06-20 18:04] LABS: ALT/SGPT 39.0 U/L (7.0-40); AST/SGOT 42.0 U/L (<34); CALCIUM LEVEL 10.1 MG/DL (8.3-10.6); CARBON DIOXIDE LEVEL 25.0 MMOL/L (20-31); CHLORIDE LEVEL 103.0 MMOL/L (98-107); CHOLESTEROL LEVEL 202.0 MG/DL (<200); CHOLESTEROL RISK RATIO 2.03 (<5); CREATININE FOR GFR 0.9 MG/DL (0.55-1.30); GLOMERULAR FILTRATION RATE 66.3 (>39); LDL CHOLESTEROL 77.1 MG/DL (<100); NON-HDL-C 102.5 MG/DL; POTASSIUM SERUM 5.4 MMOL/L (3.5-5.1); SODIUM LEVEL 137.0 MMOL/L (136-145); TRIGLYCERIDES LEVEL 127.0 MG/DL (<150)
[2025-06-20 18:06] LABS: FREE T4 1.12 NG/DL (0.89-1.76)
[2025-06-20 18:15] LABS: ESTIMATED AVERAGE GLUCOSE 103.0 MG/DL (60-110)
== END ==
LOC: M SFHCCLAY 11:38
PROVIDERS: ATTEND Physician Assistant
DX: Z00.00 Encounter for general adult medical examination without abnormal findings (principal); I10 Essential (primary) hypertension; M05.79 Rheumatoid arthritis with rheumatoid factor of multiple sites without organ or systems involvement; E03.9 Hypothyroidism, unspecified; M15.0 Primary generalized (osteo)arthritis; F41.9 Anxiety disorder, unspecified; M81.0 Age-related osteoporosis without current pathological fracture; K21.9 Gastro-esophageal reflux disease without esophagitis; Z12.31 Encounter for screening mammogram for malignant neoplasm of breast; Z79.899 Other long term (current) drug therapy

== ENCOUNTER → 2025-08-15 | Outpatient (REF) | payer MEDICARE, OTHER ==
[2025-08-15 14:59] LABS: CALCIUM LEVEL 9.9 MG/DL (8.3-10.6); CARBON DIOXIDE LEVEL 28.0 MMOL/L (20-31); CHLORIDE LEVEL 102.0 MMOL/L (98-107); CREATININE FOR GFR 0.76 MG/DL (0.55-1.30); GLOMERULAR FILTRATION RATE 81.2 (>39); POTASSIUM SERUM 4.6 MMOL/L (3.5-5.1); SODIUM LEVEL 139.0 MMOL/L (136-145)
[2025-08-15 15:00] LABS: TOTAL 25(OH) VITAMIN D 56.1 NG/ML (20.0-100.0)
== END ==
LOC: M LABDRAWC 12:20
PROVIDERS: ATTEND Nurse Practitioner Family
DX: M85.9 Disorder of bone density and structure, unspecified (principal); E55.9 Vitamin D deficiency, unspecified